=== PATIENT | female | born 1990 | race Caucasian/White ===

== ENCOUNTER 2022-10-18 05:32 | Inpatient (IN) | payer OTHER, MEDICAID, SELFPAY ==
[2022-10-18] VITALS (18 sets, daily range): BP systolic 124–142; BP diastolic 59–91; PULSE 90–108; RESP 12–18; TEMP 36.1–36.9; O2SAT 97–100
[2022-10-18] MEDS: 0.9 % SODIUM CHLORIDE 1,000 ML 1000 ML IV ×2 (06:00→07:00)
[2022-10-18 06:39] LABS: Bilirubin Urine NEGATIVE (NEGATIVE); Blood Urine NEGATIVE (NEGATIVE); Clarity Urine CLEAR (CLEAR); Color Urine LT. YELLOW (YELLOW); Glucose Urine UA NEGATIVE (NEGATIVE); Ketones Urine NEGATIVE (NEGATIVE); Leukocyte Esterase Urine SMALL (NEGATIVE); Nitrite Urine NEGATIVE (NEGATIVE); Protein Urine NEGATIVE (NEG/TRACE); Urobilinogen Urine 0.2 EU/dL (0.2-1.0)
[2022-10-18 06:44] LABS: Bacteria Urine SMALL #/HPF (NONE SEEN); Cast Seen? NONE SEEN #/LPF (NONE SEEN); Crystals Seen? None Seen #/HPF (None Seen); Mucus Urine NONE SEEN (NONE SEEN); RBC Urine 0-2 #/HPF (0-2); Squamous Epithelial Cell Urine MODERATE #/LPF (NONE/RARE)
[2022-10-18 06:45] LABS: Urine Culture Indicated YES
[2022-10-18 06:58] LABS: Basophils Percent Auto 0.2 % (0.2-2.0); Eosinophils Absolute Auto 0.1 10^3/uL (0.0-0.7); Eosinophils Percent Auto 1.1 % (0.9-7.0); Hematocrit 30.9 % (36.0-48.0); Hemoglobin 10.3 g/dL (12.0-16.0); Immature Granulocytes Abs Auto 0.15 10^3/uL (0.00-0.03); Immature Granulocytes Pct Auto 1.6 % (0.0-0.5); Lymphocytes Absolute Auto 2.6 10^3/uL (1.2-3.8); Lymphocytes Percent Auto 27.7 % (20.5-60.0); Mean Corpuscular HGB Conc 33.3 g/dL (29.9-35.2); Mean Corpuscular Hemoglobin 27.5 pg (26.7-34.0); Mean Corpuscular Volume 82.4 fL (81.0-99.0); Mean Platelet Volume 9.3 fL (9.5-13.5); Monocytes Absolute Auto 0.8 10^3/uL (0.3-0.8); Monocytes Percent Auto 8.3 % (1.7-12.0); Neutrophils Absolute Auto 5.8 10^3/uL (1.4-6.5); Neutrophils Percent Auto 61.1 % (43.0-75.0); Nucleated Red Blood Cells 0; Platelet Count 205 10^3/uL (150-450); Red Blood Count 3.75 10^6/uL (4.20-5.40); Red Cell Distribution Width 12.8 % (11.0-15.0); White Blood Count 9.5 10^3/uL (4.0-11.0)
[2022-10-18] MEDS: FAMOTIDINE/PF 20 MG/2 ML VIAL IV (07:14)
[2022-10-18] MEDS: CEFAZOLIN SODIUM/DEXTROSE,ISO 2 GM/50 ML PIGGYBACK IV (07:38)
--- NOTE | 2022-10-18 08:00 | OP_ITS ---
OPERATION DATE: ??10/18/2022 PROCEDURE:? Primary low transverse section. PREOPERATIVE DIAGNOSIS:? 1.? Intrauterine at 39 weeks. 2.? Breech presentation. POSTOPERATIVE DIAGNOSIS: 1.? Intrauterine at 39 weeks. 2.? Breech presentation. ANESTHESIA:? Spinal with Duramorph. SURGEON:? Billy Velasco D.O. [employer]W MEMBER:? Annabel Franks CNM BLOOD LOSS:? 575 mL. URINE OUTPUT:? Yellow and clear. SPECIMEN:? Placenta. FINDINGS:? Viable .? Apgars and weight unknown at this time. PROCEDURE:? Patient was taken back to the Operating Room where she was given a spinal anesthesia with Duramorph without difficulty. She was prepped and draped in the normal sterile fashion. A Pfannenstiel skin incision was then made 2 cm above the symphysis pubis and carried down to underlying rectus fascia using a Bovie. The fascia was incised in the midline and extended laterally using Acevedo scissors. Two Xiomara clamps were placed on the superior aspect of the fascia and dissected off the underlying rectus muscles. The same was performed on the inferior aspect as well. The muscles were then in the midline. Peritoneum was identified and entered bluntly. The peritoneum was then extended superiorly and inferiorly with good visualization of the bladder. The bladder blade was inserted. A low transverse incision was made on the patient's uterus and extended laterally digitally. The infant was then delivered atraumatically after the bladder blade was removed in the cephalic position. The cord was clamped and cut. Cord blood was obtained. The infant was handed off to awaiting team. The patient's placenta was spontaneously delivered. The uterus was then exteriorized. The uterus was cleared of all clots and debris. The bladder blade was reinserted. The patient's uterine incision was closed using #0 Vicryl in a running lock fashion. Excellenthemostasis was assured. The uterus was then returned to the patient's abdomen. The patient's abdomen was copiously irrigated using warm saline. Peritoneal gutters were cleared of all clots and debris. Again excellent hemostasis was assured. The patient's peritoneum was closed using 3-0 Vicryl in a running fashion. The patient's fascia was closed using #0 Vicryl in a running fashion. The patient's skin was closed using 4-0 Vicryl subcuticularly. The patient tolerated the procedure well. Sponge, lap, and needle counts were correct x2. The patient was taken to the Recovery Room in stable condition. [place]
[2022-10-18] MEDS: KETOROLAC TROMETHAMINE 30 MG/ML VIAL IVP ×2 (11:00→20:49)
[2022-10-18 12:15] LABS: Basophils Percent Auto 0.2 % (0.2-2.0); Eosinophils Absolute Auto 0.1 10^3/uL (0.0-0.7); Eosinophils Percent Auto 0.3 % (0.9-7.0); Hematocrit 28.3 % (36.0-48.0); Hemoglobin 9.3 g/dL (12.0-16.0); Immature Granulocytes Abs Auto 0.17 10^3/uL (0.00-0.03); Immature Granulocytes Pct Auto 1.2 % (0.0-0.5); Lymphocytes Absolute Auto 2.2 10^3/uL (1.2-3.8); Lymphocytes Percent Auto 15.1 % (20.5-60.0); Mean Corpuscular HGB Conc 32.9 g/dL (29.9-35.2); Mean Corpuscular Hemoglobin 27.9 pg (26.7-34.0); Mean Platelet Volume 9.3 fL (9.5-13.5); Monocytes Absolute Auto 0.9 10^3/uL (0.3-0.8); Monocytes Percent Auto 6.4 % (1.7-12.0); Neutrophils Absolute Auto 11.3 10^3/uL (1.4-6.5); Neutrophils Percent Auto 76.8 % (43.0-75.0); Platelet Count 179 10^3/uL (150-450); Red Blood Count 3.33 10^6/uL (4.20-5.40); Red Cell Distribution Width 12.8 % (11.0-15.0); White Blood Count 14.7 10^3/uL (4.0-11.0)
[2022-10-18] MEDS: CEFAZOLIN SODIUM/DEXTROSE,ISO 1 GM/50 ML IV.SOLN IV (15:47)
--- NOTE | 2022-10-18 20:07 | PC.NURSE ---
1100-pt c/o incisional pain rates 09/25-toradol given as ordered. Pt appears to be itchihng, nubain offered, but pt declines 1200- VSS, pericare completed. Moderate amount of rubra noted. Villarreal cont to drain clear yellow urine 1305-eats lunch. visitors in. denies needs 1400-resting comfortably in bed 1530-dressing c,d,i-pericare completed. Moderate amount of rubra noted. Uterus firm. 1700-visitors in. denies needs. IV to SL 1830-Dressing CDI. denies needs
[2022-10-18] MEDS: NALBUPHINE HCL 10 MG/ML AMPULE IV (22:38)
--- NOTE | 2022-10-18 23:30 | PC.NURSE ---
pt c/o incisional pain with movement and request toradol IV
[2022-10-19 01:00] VITALS: BP 122/78; PULSE 90; RESP 16; TEMP 36.4; O2SAT 98
[2022-10-19 05:10] VITALS: BP 112/70; PULSE 92; RESP 16; TEMP 36.6; O2SAT 98
[2022-10-19 05:35] LABS: Basophils Percent Auto 0.3 % (0.2-2.0); Eosinophils Absolute Auto 0.1 10^3/uL (0.0-0.7); Eosinophils Percent Auto 1.2 % (0.9-7.0); Hematocrit 25.3 % (36.0-48.0); Hemoglobin 8.2 g/dL (12.0-16.0); Immature Granulocytes Abs Auto 0.17 10^3/uL (0.00-0.03); Immature Granulocytes Pct Auto 1.8 % (0.0-0.5); Lymphocytes Absolute Auto 2.3 10^3/uL (1.2-3.8); Lymphocytes Percent Auto 24.1 % (20.5-60.0); Mean Corpuscular HGB Conc 32.4 g/dL (29.9-35.2); Mean Corpuscular Hemoglobin 27.8 pg (26.7-34.0); Mean Corpuscular Volume 85.8 fL (81.0-99.0); Mean Platelet Volume 8.9 fL (9.5-13.5); Monocytes Absolute Auto 0.8 10^3/uL (0.3-0.8); Monocytes Percent Auto 7.8 % (1.7-12.0); Neutrophils Absolute Auto 6.3 10^3/uL (1.4-6.5); Neutrophils Percent Auto 64.8 % (43.0-75.0); Platelet Count 155 10^3/uL (150-450); Red Blood Count 2.95 10^6/uL (4.20-5.40); White Blood Count 9.7 10^3/uL (4.0-11.0)
[2022-10-19 06:38] LABS: Amphetamine Screen Urine NEGATIVE (NEGATIVE); Barbiturates Screen Urine NEGATIVE (NEGATIVE); Benzodiazepines Screen Urine NEGATIVE (NEGATIVE); Cannabinoid Screen Urine NEGATIVE (NEGATIVE); Cocaine Screen Urine NEGATIVE (NEGATIVE); Methadone Screen Urine NEGATIVE (NEGATIVE); Methamphetamines Screen Urine NEGATIVE (NEGATIVE); Opiate Screen Urine NEGATIVE (NEGATIVE); Oxycodone Screen Urine NEGATIVE (NEGATIVE); Phencyclidine Screen Urine NEGATIVE (NEGATIVE); Tricyclic Antidepressant Urine NEGATIVE (NEGATIVE)
[2022-10-19 06:39] LABS: Buprenorphine Screen Urine NEGATIVE (NEGATIVE)
--- NOTE | 2022-10-19 07:44 | W.PC.ACHO ---
Registration Status: ADM IN Primary Language: Northern Irish Preferred Language: Northern Irish Active Medications Generic Name Dose Route Start Last Admin Trade Name Freq PRN Reason Stop Dose Admin Al Hydroxide/Mg Hydroxide 2,400 mg 10/18/22 11:33 Magnesium Hydroxide 2,400 Mg/10 Ml Oral.Susp PO Q6H PRN Dyspepsia Docusate Sodium 100 mg 10/19/22 09:00 Docusate Sodium 100 Mg Capsule PO BID FABRICIO Ketorolac Tromethamine 30 mg 10/18/22 10:50 10/18/22 20:49 Ketorolac Tromethamine 30 Mg/Ml Vial IVP 30 mg Q6H PRN Administration Pain Nalbuphine HCl 10 mg 10/18/22 11:33 10/18/22 22:38 Nalbuphine Hcl 10 Mg/Ml Ampule IV 10/19/22 11:34 10 mg Q3H PRN Administration Itching Ondansetron HCl 4 mg 10/18/22 11:33 Ondansetron Pf 4 Mg/2 Ml Vial IV Q6H PRN Nausea And Vomiting Ondansetron HCl 4 mg 10/18/22 11:33 Ondansetron 4 Mg Rapdis Tablet PO Q6H PRN Nausea And Vomiting Oxycodone/Acetaminophen 2 each 10/18/22 11:28 Oxycodone Hcl/Acetaminophen 5-325 Mg Tablet PO Q4H PRN Pain Simethicone 80 mg 10/18/22 11:33 Simethicone 80 Mg Tab.Chew PO QID PRN Abdominal Distention Diet Category Date Time Status Regular Consistency Diet Diet 10/18/22 Lunch Active Neurology Jacquelyn coma scale total score 15 Respiratory Lung sounds [Bilateral] clear Lung sounds [Bilateral] clear Lung sounds [Bilateral] clear Pulse Oximetry 98 Pulse Oximetry 98 Pulse Oximetry 100 Pulse Oximetry 98 Pulse Oximetry 97 Pulse Oximetry 99 Pulse Oximetry 99 Pulse Oximetry 98 Pulse Oximetry 99 Pulse Oximetry 99 Pulse Oximetry 98 Pulse Oximetry 98 Pulse Oximetry 98 Pulse Oximetry 99 Pulse Oximetry 100 Oxygen Delivery Method Room Air Oxygen Delivery Method Room Air Oxygen Delivery Method Room Air Oxygen Delivery Method Room Air Oxygen Delivery Method Room Air Cardiology Heart Sounds Regular Heart Sounds Regular
[2022-10-19] MEDS: KETOROLAC TROMETHAMINE 30 MG/ML VIAL IVP ×2 (08:37→15:16)
[2022-10-19] MEDS: DOCUSATE SODIUM 100 MG CAPSULE PO ×2 (08:38→21:58)
[2022-10-19 08:45] VITALS: BP 118/92; PULSE 78; RESP 16; TEMP 36.4; O2SAT 99
--- NOTE | 2022-10-19 09:30 | PC.NURSE ---
Discussed feeding plan with patient and signficant other for . Parents desire to pump and feed expressed milk. discussed importance of pumping initiation today to establish milk supply. Verbalizes understanding. patient declines to pump at this time, breakfast at bedside. will pump after breakfast
--- NOTE | 2022-10-19 12:18 | P.OBPN_ITS ---
OB - PN: Subj Subjective Patient comments: no complaints [place] status: NICU Exam Narrative Exam Narrative: Constitutionally normal. . Lungs are clear to auscultation. Heart regular rate and rhythm. Abdomen is soft, nontender, incision is clean, intact, uterus is firm, nontender. Lochia normal. Extremities in normal. Neurologically intact, psychiatric exam negative. Extremities are normal Constitutional Vital Signs - 24 hr 10/19/22 08:45 10/18/22 12:33 10/18/22 16:20 Temperature 97.5 F L 97.3 F L Pulse Rate Respiratory Rate Blood Pressure 135/83 H Blood Pressure [Right Arm] Pulse Oximetry Oxygen Delivery Method 10/18/22 20:20 10/19/22 01:00 10/19/22 05:10 Temperature 98.4 F 97.6 F 97.9 F Pulse Rate 98 H 90 92 H Respiratory Rate 16 16 16 Blood Pressure Blood Pressure [Right Arm] 142/91 H 122/78 H 112/70 Pulse Oximetry 100 98 98 Oxygen Delivery Method Room Air Room Air Room Air Results Labs Labs: Short CBC 10/18/22 10/19/22 Range/Units 11:50 05:22 WBC 14.7 H 9.7 (4.0-11.0) 10^3/uL Hgb 9.3 L 8.2 L (12.0-16.0) g/dL Hct 28.3 L 25.3 L (36.0-48.0) % Plt Count 179 155 (150-450) 10^3/uL OB - PN: A/P Assessment and Plan (1) normal course: Plan PPD1 , status post , improving. Plan - day: 1 Plan: routine postop care Time Spent with Patient Time: Total time spent is greater than 50% in coordination of care (as documented) at patient's floor/unit and/or counseling patient: Total time spent with greater than 50% in coordination of care (as documented) at patient's floor/unit and/or counseling patient: less than 15 minutes
[2022-10-19 16:50] VITALS: BP 123/86; PULSE 94; RESP 14; TEMP 36.9; O2SAT 99
--- NOTE | 2022-10-19 19:17 | W.PC.ACHO ---
Registration Status: ADM IN Primary Language: [place]an Preferred Language: [place] Encourage ambulation, continue working on pumping, goal is to shower tonight and prep for discharge tomorrow morning to see baby in [place]. Active Medications Generic Name Dose Route Start Last Admin Trade Name Freq PRN Reason Stop Dose Admin Al Hydroxide/Mg Hydroxide 2,400 mg 10/18/22 11:33 Magnesium Hydroxide 2,400 Mg/10 Ml Oral.Susp PO Q6H PRN Dyspepsia Docusate Sodium 100 mg 10/19/22 09:00 10/19/22 08:38 Docusate Sodium 100 Mg Capsule PO 100 mg BID FABRICIO Administration Ketorolac Tromethamine 30 mg 10/18/22 10:50 10/19/22 15:16 Ketorolac Tromethamine 30 Mg/Ml Vial IVP 30 mg Q6H PRN Administration Pain Ondansetron HCl 4 mg 10/18/22 11:33 Ondansetron Pf 4 Mg/2 Ml Vial IV Q6H PRN Nausea And Vomiting Ondansetron HCl 4 mg 10/18/22 11:33 Ondansetron 4 Mg Rapdis Tablet PO Q6H PRN Nausea And Vomiting Oxycodone/Acetaminophen 2 each 10/18/22 11:28 Oxycodone Hcl/Acetaminophen 5-325 Mg Tablet PO Q4H PRN Pain Simethicone 80 mg 10/18/22 11:33 Simethicone 80 Mg Tab.Chew PO QID PRN Abdominal Distention Neurology Patient orientation (short person,place,time,situation list) Jacquelyn coma scale total score 15 [place] coma scale total score 15 Respiratory Lung sounds [Bilateral] clear Pulse Oximetry 99 Pulse Oximetry 99 Pulse Oximetry 98 Pulse Oximetry 98 Pulse Oximetry 100 Oxygen Delivery Method Room Air Oxygen Delivery Method Room Air Oxygen Delivery Method Room Air Oxygen Delivery Method Room Air Cardiology Heart Sounds Strong,Regular Heart Sounds Regular Heart Sounds Regular Catheter Date Urinary Catheter Removed 10/19/22 [Urethral] Time Urinary Catheter 10:35 Discontinued [Urethral]
[2022-10-19] MEDS: IBUPROFEN 400 MG TABLET 800 MG PO (21:58)
[2022-10-20 00:10] VITALS: BP 131/84; PULSE 96; RESP 16; TEMP 37.2
[2022-10-20 08:00] VITALS: BP 123/83; PULSE 97; RESP 16
[2022-10-20] MEDS: DOCUSATE SODIUM 100 MG CAPSULE PO (08:05)
[2022-10-20] MEDS: IBUPROFEN 400 MG TABLET 800 MG PO (08:05)
--- NOTE | 2022-10-20 13:14 | PM.OBPN ---
OB - PN: Subj Subjective Patient comments: no complaints [place] status: doing well feeding status: expressed and storing Exam Narrative Exam Narrative: Doing well, afebrile.? Improving.? Lungs are clear to auscultation, heart regular rate and rhythm.? Abdomen soft, nontender, bowel sounds positive, uterus firm, nontender, lochia normal. incision is clean, intact. .? Extremities normal. Neurologically grossly intact.? Psychiatric exam negative. Constitutional Vital Signs - 24 hr 10/19/22 16:50 10/20/22 00:10 10/20/22 08:00 Temperature 98.5 F 98.9 F Pulse Rate 94 H 96 H Pulse Rate [Monitor] 97 H Respiratory Rate 14 16 16 Blood Pressure [Right Arm] 123/86 H 131/84 H Pulse Oximetry 99 Oxygen Delivery Method Room Air 10/20/22 08:00 Temperature Pulse Rate Pulse Rate [Monitor] Respiratory Rate Blood Pressure [Right Arm] 123/83 H Pulse Oximetry Oxygen Delivery Method OB - PN: A/P Assessment and Plan (1) normal course: Plan PPD2, s/p , improved. Plan - day: 2 Plan: routine postop care and discharge home Time Spent with Patient Time: Total time spent is greater than 50% in coordination of care (as documented) at patient's floor/unit and/or counseling patient: Total time spent with greater than 50% in coordination of care (as documented) at patient's floor/unit and/or counseling patient: less than 15 minutes
[2022-10-20] MEDS: ONDANSETRON 4 MG RAPDIS TABLET PO (15:02)
--- NOTE | 2022-12-07 10:08 | PM.ONB ---
Brief Operative Note Date of procedure: 12/07/22 Pre-op diagnosis: iup at 39wks, previous c/s Post-op diagnosis: same Procedure: NAME OF PROCEDURE: [ section ] PROCEDURE: Patient was taken back to the Operating Room where she was given a spinal anesthesia with Duramorph without difficulty. She was prepped and draped in the normal sterile fashion. A Pfannenstiel skin incision was then made 2 cm above the symphysis pubis and carried down to underlying rectus fascia using a Bovie. The fascia was incised in the midline and extended laterally using Acevedo scissors. Two Xiomara clamps were placed on the superior aspect of the fascia and dissected off the underlying rectus muscles. The same was performed on the inferior aspect as well. The muscles were then in the midline. Peritoneum was identified and entered bluntly. The peritoneum was then extended superiorly and inferiorly with good visualization of the bladder. The bladder blade was inserted. A low transverse incision was made on the patient's uterus and extended laterally digitally. The was then delivered atraumatically after the bladder blade was removed in the cephalic position. The cord was clamped and cut. Cord blood was obtained. The was handed off to awaiting team. The patient's placenta was spontaneously delivered. The uterus was then exteriorized. The uterus was cleared of all clots and debris. The bladder blade was reinserted. The patient's uterine incision was closed using #0 Vicryl in a running lock fashion. Excellent hemostasis was assured. The uterus was then returned to the patient's abdomen. The patient's abdomen was copiously irrigated using warm saline. Peritoneal gutters were cleared of all clots and debris. Again excellent hemostasis was assured. The patient's peritoneum was closed using 3-0 Vicryl in a running fashion. The patient's fascia was closed using #0 Vicryl in a running fashion. The patient's skin was closed using 4-0 Vicryl subcuticularly. The patient tolerated the procedure well. Sponge, lap, and needle counts were correct x2. The patient was taken to the Recovery Room in stable condition. Surgeon: Billy Velasco Skimmer Reverberatory: Aishwarya Chow Estimated blood loss (mL): 575 Pathology: other Condition: stable Disposition: floor
--- NOTE | 2022-12-07 10:09 | PM.OBPRCCS ---
Procedure Pre-op/Post-op diagnoses: Pre-Op/Post-Op Diagnoses Operation Date: 10/18/22 07:30 <No data on this case meets the specified criteria> Procedure: Procedures Operation Date: 10/18/22 07:30 Actual Procedure Side Surgeon p Not Applicable Billy Velasco DO Chronic Manager: Aishwarya Chow Disposition: PACU Anesthesia type: Spinal
--- NOTE | 2022-12-12 | DS_ITS ---
DISCHARGE DATE: ??12/12/2022 PRIMARY DIAGNOSES: 1.? Intrauterine at 39 weeks. 2.? Previous . PROCEDURE:? Repeat low transverse section. HOSPITAL COURSE:? As expected.? Please see chart for full details.? LABORATORY DATA:? Please see chart. COMPLICATIONS:? None. DISCHARGE CONDITION:? Stable. CONSULTATION:? Anesthesia. DISCHARGE INSTRUCTIONS: 1.? Diet:? Regular. 2.? Medications: a.? Percocet 5/325 one to two p.o. every 4-6 hours p.r.n. pain. b.? Motrin 800 one p.o. every 8 hours p.r.n. pain. 3.? Followup in one week. Restrictions:? Pelvic rest for 6 weeks.? No heavy lifting.? May drive when pain free and no longer on narcotics. MTDD
== END 2022-10-20 15:18 | disposition home or self-care (01) | DRG 788 ==
PROVIDERS: Admitting Provider Obstetrics & Gynecology; Visit Provider Obstetrics & Gynecology
PROC: 10D00Z1 Extraction of Products of Conception, Low, Open Approach (ICD-10-PCS; CPT 59514; principal; 2022-10-18 07:30)
DX: O32.1XX0 Maternal care for breech presentation, not applicable or unspecified (principal); Z37.0 Single live birth; O99.62 Diseases of the digestive system complicating childbirth; K02.9 Dental caries, unspecified; Z3A.39 39 weeks gestation of pregnancy
CPT/HCPCS: 36415; 59025; 80307; 81001; 85025; 86850; 86900; 86901; 87086; 96374; J2300